=== PATIENT | female | born 1985 | race Caucasian/White ===

== ENCOUNTER 2016-08-26 08:15 | Observation (INO) ==
--- NOTE | 2016-08-26 09:49 | Emergency Department Note ---
Disposition Clinical Impression: Cholecystitis, acute with cholelithiasis Qualifiers: Cholelithiasis location: gallbladder Biliary obstruction: without biliary obstruction Qualified Code(s): K80.00 - Calculus of gallbladder with acute cholecystitis without obstruction Disposition: Admitted As Inpatient Condition: Fair Referrals: NO,PCP [Primary Care Provider] - Forms: Work/School Release, ED Satisfaction Letter Time of Disposition: 10:47 Abdominal Pain HPI - General Chief Complaint: ED Abdominal Pain Stated Complaint: From [facility] for Gallbladder US Time Seen by Provider: 08/26/16 08:29 Source: patient, family Nursing Notes Reviewed: Yes Vital Signs Reviewed: Yes - History of Present Illness HPI Narrative: Presents with abdominal pain which is generalized and sharp and constant and woke her from sleep at 2:00 in the morning and after her pain started she began to have some vomiting and has vomited 3 times. No diarrhea. She also feels a sensation of shortness of breath which occurs when her pain worsens. She has some sore feeling in the chest however there is no pleuritic chest pain. No pain or swelling of the lower extremities, prolonged immobilization, hormonal therapy/ control pills. She denies any dysuria or urinary frequency, blood in the urine or stool, vaginal bleeding or discharge. Social history: Smoker, several times a week she will drink 6 beers at a time, no drugs. Was seen at a outside emergency department and had a CAT scan that showed gallstones and pericholecystic fluid. She was sent here for a ultrasound. I did review the labs which show normal white count, left lites, renal function and liver function tests. She is here with her mother Pain Scale: 10 - Related Data Home Medications Medication Instructions Recorded Confirmed No Known Home Drugs 02/28/16 02/28/16 Allergies Allergy/AdvReac Type Severity Reaction Status Date / Time No Known Allergies Allergy Verified 08/26/16 08:40 Review of Systems: Constitutional: No fever Vision: No blurred vision ENT: No rhinorrhea Respiratory: No cough Allergic: No allergies : No blood in urine GI: No blood in stool Hematologic: No bruising Dermatologic: No skin rash Musculoskeletal: No pain in the extremities Neuro: No numbness of the extremities Abdominal Pain PMH - Past Medical History Medical history: Reports: no medical history Female Surgical History: Reports: no surgical history Psychiatric history: Reports: no psych history - Social History Smoking status: Current every day smoker Alcohol use: Reports: occasionally Drug use: Reports: none Physical Exam CONSTITUTIONAL: Alert and oriented X3, well-nourished, well appearing, in no apparent distress HEAD: Normocephalic; atraumatic. EYES: PERRL, no scleral icterus. NOSE: The nose is normal in appearance without rhinorrhea RESP: Normal chest excursion with respiration; breath sounds clear and equal bilaterally; no wheezes, rhonchi, or rales CARD: Regular rhythm, without murmurs, rub or gallop ABD: Non-distended; moderate generalized abdominal pain worse than the right upper quadrant where there is some voluntary guarding, else with abdomen is soft. Normal appearance without evidence of rash. No rebound SKIN: Normal for age and race; warm and dry; no apparent lesions Back: Normal appearance - General Limitations: no limitations General appearance: alert Course Vital Signs Temperature 98.4 F 08/26/16 08:25 Pulse Rate 45 08/26/16 08:25 Respiratory Rate 18 08/26/16 08:25 Blood Pressure 143/78 08/26/16 08:25 O2 Sat by Pulse Oximetry 100 08/26/16 08:25 Temperature 98.4 F 08/26/16 08:25 Pulse Rate 55 08/26/16 08:35 Respiratory Rate 20 08/26/16 08:35 Blood Pressure 125/94 08/26/16 08:35 O2 Sat by Pulse Oximetry 100 08/26/16 08:42 Oxygen Delivery Oxygen Delivery Room Air Abdominal Pain - MDM Narrative Medical decision making narrative: Ultrasound has been completed, we are waiting the radiology confirmation of the results. I do not suspect pulmonary embolism or acute coronary syndrome. Does have generalized abdominal pain. Likely from cholecystitis. [id number] I did review the ultrasound result consistent with cholecystitis. I did review the patient's labs from this morning. Surgery will be paged. I have seen the patient multiple occasions and she is not toxic in appearance at this time. Breathing comfortably. Vital signs have been reviewed. [address] Dickens who accepts the patient for admission. We did review the patient's radiology results and lab results. Patient will be given 2 g of Mefoxin 1043 - Medical Records Medical records reviewed: Yes I reviewed the patient's medical records. - Lab Data Lab results reviewed: Yes I reviewed the patient's lab results.
[2016-08-26] MEDS ORDERED: cefOXitin 2,000 MG in D5% in Water (Mini-Bag+) 100 ML IVPB ONE (10:44)
[2016-08-26] MEDS ORDERED: *HR* HYDROmorphone (PF) 1 MG/ML SYRINGE IVP ONE (11:53)
[2016-08-26] MEDS ORDERED: Naloxone 0.4 MG/ML INJ IVP PRN (14:33)
[2016-08-26] MEDS ORDERED: Ketorolac 15 MG/ML VIAL IVP PRN (14:36)
[2016-08-26] MEDS ORDERED: Ipratropium/Albuterol Neb 3 ML IH PRN (14:38)
--- NOTE | 2016-08-26 14:44 | General Surg History&Physical ---
Date of Encounter: 08/26/16 Time of Encounter: 14:20 Assessment and Plan (1) Cholecystitis, acute with cholelithiasis Current Visit: Yes Status: Acute The assessment and plan as outlined above was discussed with the patient and/or family members who expressed understanding and agreement. All questions were answered. Clear liquid diet Nothing by mouth after midnight IV fluids at 75 mL per hour IV antibiotics Zosyn Supportive care and pain control- Toradol and Dilaudid PPI therapy daily Increase activity as tolerated Risks, benefits, alternatives, expected outcomes been reviewed with the patient she is agreement to proceed to the operating room for laparoscopic cholecystectomy with cholangiogram with Dr. Dickens in the next 24 hours. Qualifiers: Cholelithiasis location: gallbladder Biliary obstruction: without biliary obstruction Qualified Code(s): K80.00 - Calculus of gallbladder with acute cholecystitis without obstruction (2) Tobacco abuse Current Visit: Yes Status: Acute The assessment and plan as outlined above was discussed with the patient and/or family members who expressed understanding and agreement. All questions were answered. Smoking cessation education Duonebs Q6 hours prn IS every 1 hour while awake (3) DVT prophylaxis Current Visit: Yes Status: Acute The assessment and plan as outlined above was discussed with the patient and/or family members who expressed understanding and agreement. All questions were answered. EPCDs to bilateral lower extremities generation manager to the OR 07/28/16 [address] hall[address] TID with assistance History of Present Illness Chief complaint: Abdominal pain with associated nausea/vomiting HPI: Ms. Dahl is a 31 year old female presented to the emergency department with complaints of acute onset of central abdominal discomfort. She states that this started at 3 AM this morning. She states that the pain is sharp and stabbing has been constant since onset. She states that it woke her up from sleep. It does radiate straight through into her back. She is unable to identify any aggravating or alleviating factors. She has had pain like this in the past a few years ago and then again last week. She states that the previous episodes that have resolved on their own. She does admit to nausea and vomiting but denies any hematemesis or coffee-ground emesis. Denies any heartburn symptoms. Denies any fevers or chills. Denies any changes in bowel habits. Denies any difficulty with urination. Denies any chest pain or shortness of breath. She has had an ultrasound completed in the emergency department which shows evidence of acute cholecystitis. The patient will be admitted to the hospital for further workup and treatment. Past Med Surg Social Fam HX - Past Medical History Source: patient, old records reviewed Medical history: no medical history Psychiatric history: no psych history - Past Surgical History Surgical History: cataract (right eye), other ( X 2) - Social History Smoking Status: Current every day smoker Packs per day: 1/2 pack/day Smokeless Tobacco Status: No Alcohol use: occasionally Drug use: none Current living situation: Home - Independent Activity Level: Independent ambulation Recent Out of Country Travel Within the Last 8 Weeks: No Exposure or Possible Exposure to Illness During Travel: No - Family History Mother Adopted: [place]: Elvira Dahl Age: 53 Living Status: Still Living Hx Family Cardiac Disorders: No Hx Family Respiratory Disorders: No Hx Family Cancer: No Hx Family GI Disorders: No Hx Family Genitourinary Disorders: No Hx Family Endocrine Disorder: No Hx Family Musculoskeletal Disorders: No Hx Family Neuromuscular Disorders: No Hx Family Neurologic Disorders: No Hx Family HEENT Disorders: No Hx Family Autoimmune Disorders: No Hx Family Reproductive Disorders: No Hx Family Psychosocial Disorders: No Hx Family Medical Disorders: No Medications and Allergies No Known Home Drugs 02/28/16 [History] Allergies No Known Allergies Allergy (Verified 08/26/16 08:40) Review of Systems All systems PM: reviewed and no additional remarkable complaints except as stated (in the HPI) All systems PM: A 10-system review of systems was performed and is negative for pertinent findings except as documented above in the HPI. General Surgery Exam Initial Vital Signs Temp Pulse Resp BP Pulse Ox 98.4 F 45 18 143/78 100 08/26/16 08:25 08/26/16 08:25 08/26/16 08:25 08/26/16 08:25 08/26/16 08:25 - General physical appearance well developed, well nourished, moderate distress, moderate pain - Eyes normal ocular movement - ENT normal mucosa, atraumatic, normocephalic - Neck trachea midline - Respiratory normal respiratory effort, clear to auscultation - Cardiovascular Cardiovascular exam: Present: RRR - Abdomen Abdomen general surgery: Present: bowel sounds present, soft, tender - Integumentary Integumentary general surgery: Present: warm and dry - Neurologic Present: CN 2-12 grossly intact - Psychiatric Psychiatric general surgery: Present: appropriate, oriented to person, oriented to place, oriented to time, speech is normal, memory intact Results - Labs All other labs normal. - Imaging US - abdomen: report reviewed Additional studies: Gallbladder Ultrasound 08/26/16 08:39 IMPRESSION: Cholelithiasis with mucosal thickening and pericholecystic fluid. No sonographic Yanez sign. Acute cholecystitis is suspected. Lack of tenderness could be due to potential medication. Please correlate clinically. D/ / Kelby Herrera MD / Kelby Herrera MD Interpreting Provider: Kelby Herrera MD Chest X-Ray 08/26/16 12:04 IMPRESSION: 1. There are bilateral nipple shadows along the lower chest. 2. No acute cardiopulmonary disease. D/ / Henrik Cho MD / Henrik Cho MD Interpreting Provider: Henrik Cho MD
[2016-08-26] MEDS: 0.9 % Sodium Chloride 1,000 ML IVC SCH (14:57)
[2016-08-26] MEDS: *HR* HYDROmorphone (PF) 1 MG/ML SYRINGE IVP PRN ×5 (14:58→23:54)
[2016-08-26] MEDS: Nicotine 14 MG PATCH.TD24 TD SCH (15:03)
[2016-08-26] MEDS: Piperacillin/Tazobactam 3.375 GM in D5% in Water (Mini-Bag+) 100 ML IVPB SCH ×2 (17:15→23:54)
[2016-08-26] MEDS: Ondansetron 4 MG/2 ML VIAL IVP PRN ×2 (17:47→23:54)
--- NOTE | 2016-08-26 18:55 | Anesthesia Evaluation PreOp ---
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 Significant HX Other Medical History: Denies Any Significant HX Anesthesia History: No Prior Anesthetic Complications : No Test: Negative Alcohol Use: occasionally Drug use: none Medications and Allergies No Known Home Drugs 02/28/16 [History] Allergies No Known Allergies Allergy (Verified 08/26/16 08:40) - Meds/Allergy Pre-op Review Medications Reviewed: Yes Allergies Reviewed: Yes Beta Blockers on Current Med List: No Anesthesia Results - Labs Laboratory Tests 08/26/16 08/26/16 08/26/16 05:00 05:00 06:07 Hgb 13.1 Hct 37.3 Plt Count 211 Sodium 139 Potassium 3.5 BUN 14 Creatinine 0.65 Urine Test Negative Anesthesia Exam O2 Sat Height 1.57 m Height 1.57 m Weight 54.613 kg Weight 56.699 kg O2 Sat by Pulse Oximetry 97 O2 Sat by Pulse Oximetry 100 O2 Sat by Pulse Oximetry 100 O2 Sat by Pulse Oximetry 100 O2 Sat by Pulse Oximetry 100 O2 Sat by Pulse Oximetry 100 Vital Signs Temp Pulse Resp BP Pulse Ox 98.4 F 45 18 143/78 100 08/26/16 08:25 08/26/16 08:25 08/26/16 08:25 08/26/16 08:25 08/26/16 08:25 Height: 5'2 Weight: 120 lbs NPO (# of Hours): MN Pain Scale: 0 - HEENT Pupil (Motor): Pupils equal, EOMI Mallampati: II Teeth: Normal Oral Opening: Greater than 3 - HOT METAL MIXER OPERATOR LOC: Oriented HOT METAL MIXER OPERATOR Motor: Normal RUE, Normal LUE, Normal RLE, Normal LLE, Normal Face HOT METAL MIXER OPERATOR Sensory: Normal: RUE, LUE, RLE, LLE, Face - Cardiac Rhythm: Regular Murmur: None JVD: No Carotid Bruit: No - Pulmonary Breath Sounds: bilateral Clear Respiratory Effort: Symmetrical Anesthesia Assess/Plan ASA Score: 2 Modified Kayden Scale for Level of Consciousness: Cooperative, oriented, and tranquil Anesthetic Plan: General Monitoring Plan: Standard Monitors Recovery Plan: PACU (Discussed GA, agrees to proceed)
[2016-08-27] MEDS: *HR* HYDROmorphone (PF) 1 MG/ML SYRINGE IVP PRN ×5 (03:48→12:09)
[2016-08-27] MEDS: 0.9 % Sodium Chloride 1,000 ML IVC SCH (03:48)
[2016-08-27] MEDS: Piperacillin/Tazobactam 3.375 GM in D5% in Water (Mini-Bag+) 100 ML IVPB SCH (08:10)
[2016-08-27] MEDS: Nicotine 14 MG PATCH.TD24 TD SCH (08:15)
[2016-08-27] MEDS ORDERED: Acetaminophen IV 1,000 MG/100 ML INFUS..BTL ONE (10:42)
[2016-08-27] MEDS ORDERED: Lidocaine -MPF 2% 2 ML VIAL ONE ×2 (11:01)
[2016-08-27] MEDS ORDERED: Dexamethasone 4 MG/ML VIAL ONE (11:01)
[2016-08-27] MEDS ORDERED: *HR* FentaNYL (PF) 100 MCG/2 ML VIAL ONE ×3 (11:01→11:24)
[2016-08-27] MEDS ORDERED: *HR* Propofol 200 MG/20 ML VIAL IVP ONE (11:01)
[2016-08-27] MEDS ORDERED: Ondansetron 4 MG/2 ML VIAL ONE (11:01)
[2016-08-27] MEDS ORDERED: *HR* Rocuronium Bromide 50 MG/5 ML VIAL ONE (11:01)
[2016-08-27] MEDS ORDERED: *HR* Midazolam HCl 2 MG/2 ML VIAL ONE (11:01)
[2016-08-27] MEDS ORDERED: Lidocaine -MPF 4% 5 ML AMPUL ONE (11:01)
[2016-08-27] MEDS ORDERED: Ketorolac 30 MG/ML VIAL ONE (11:13)
[2016-08-27] MEDS ORDERED: Neostigmine Methylsulfate 3 MG/3 ML SYRINGE ONE (11:13)
[2016-08-27] MEDS ORDERED: *HR* Labetalol 20 MG/4 ML SYRINGE IVP PRN ×2 (11:14→13:08)
[2016-08-27] MEDS ORDERED: Ondansetron 4 MG/2 ML VIAL IVP ONE ×2 (11:14→13:08)
[2016-08-27] MEDS ORDERED: *HR* Promethazine 25 MG/ML VIAL IVP PRN ×2 (11:14→13:08)
--- NOTE | 2016-08-27 11:34 | Operative Note ---
Date of procedure: 08/27/16 Pre-op diagnosis: Acute cholecystitis Post-op diagnosis: same Procedure: Laparoscopic Cholecystectomy with cholangiogram Anesthesia: JEFF Surgeon: Amador Dickens Estimated blood loss (cc): 25 Specimen: GB Condition: stable Disposition: same day Procedure in Detail: After informed consent the patient was taken to the operating room. After adequate sedation anesthesia the abdomen was prepped and draped. A proper timeout was performed. Two towel clamps to place the umbilicus. A varies needle was placed at the umbilicus and a pneumo-peritoneum was created. A 12 mm incision was made at the umbilicus and a port was placed under direct visualization. An 5 mm incision was created in the left upper quadrant, followed by one in the right upper quadrant. There were 2 individual 5 mm cannulas then placed agrees incisions. An additional 5 mm cannula was created in the right lower quadrant. Cameras inserted and the gallbladder was identified. There was extensive edematous changes to the dome of the gallbladder. Once it was retracted anteriorly and cephalad the infundibulum and cystic duct was skeletonized. A window was created behind the cystic duct. Clips are placed distally on the duct and a duct artery was created. A cholangiogram was performed. There was filling of the cystic duct common hepatic and radicals followed by the common bile duct and finally the duodenum. No stones could be identified. Once the structures were identified the cystic duct was clipped twice proximally and once distally. Cystic duct was then transected. The gallbladder was then resected off the liver surface. Once the gallbladder was fully resected from the liver surface, the liver was gently irrigated and suctioned dry. We ensured hemostasis prior to removing the gallbladder through the umbilical port. Pneumoperitoneum was then evacuated. The 12 mm cannula site was closed with a 0-Vicryl suture in [id number] fashion. The port sites were injected with half percent Marcaine 30 mL. The skin was closed with 4-0 Vicryl suture and Dermabond. All instrument counts and needle counts were correct at the end of the case. The pt was taken to recovery in stable condition.
--- NOTE | 2016-08-27 12:28 | Anesthesia Evaluation Post Op ---
Date of Encounter: 08/27/16 Time of Encounter: 12:27 - Vital Signs Vital Signs: Vital Signs/O2 Sat, Most Current Temp Pulse Resp BP Pulse Ox 97.9 F 59 14 121/78 99 08/27/16 12:26 08/27/16 12:17 08/27/16 12:17 08/27/16 12:08/27/16 12:17 - Lungs Lungs: Clear Ascult./Percussion - Airway Airway: Non-obstructed - Cardiovascular Regular Rate - Mental Status Mental Status: Alert & Oriented, Answers Appropriately - Pain Pain Scale: 0 Pain Scale used: Numeric (1 - 10) - Nausea Vomiting Nausea Vomiting: Not Present - Hydration Hydration: Ice chips, Has not voided - Discharge PostOp Status: Transfer Patient to floor
[2016-08-27] MEDS ORDERED: Ondansetron 4 MG/2 ML VIAL IVP PRN (13:08)
[2016-08-27] MEDS ORDERED: Ketorolac 15 MG/ML VIAL IVP PRN (13:08)
[2016-08-27] MEDS ORDERED: 0.9 % Sodium Chloride 1,000 ML IVC SCH (13:08)
[2016-08-27] MEDS ORDERED: *HR* HYDROmorphone (PF) 1 MG/ML SYRINGE IVP PRN ×2 (13:08)
[2016-08-27] MEDS ORDERED: Ipratropium/Albuterol Neb 3 ML IH PRN (13:08)
[2016-08-27] MEDS ORDERED: Naloxone 0.4 MG/ML INJ IVP PRN (13:08)
--- NOTE | 2016-08-27 14:12 | Discharge Summary ---
Date of Encounter: 08/27/16 Time of Encounter: 14:00 - Discharge Diagnosis (1) Cholecystitis, acute with cholelithiasis Priority: Primary Status: Acute Qualifiers: Cholelithiasis location: gallbladder Biliary obstruction: without biliary obstruction Qualified Code(s): K80.00 - Calculus of gallbladder with acute cholecystitis without obstruction (2) Tobacco abuse Priority: Secondary Status: Acute - Discharge Medications Prescriptions: OxyCODONE/APAP 5/325 [Percocet 5/325 MG] 1 each PO Q6HR PRN #30 tablet PRN Reason: Pain Docusate [Colace] 100 mg PO BID #30 Home Medications: No Known Home Drugs 02/28/16 [History] Docusate [Colace] 100 mg PO BID #30 08/27/16 [Rx] OxyCODONE/APAP 5/325 [Percocet 5/325 MG] 1 each PO Q6HR PRN #30 tablet 08/27/16 [Rx] Allergies/Adverse Reactions: Allergies No Known Allergies Allergy (Verified 08/26/16 08:40) General Surgery Exam Initial Vital Signs Temp Pulse Resp BP Pulse Ox 98.4 F 45 18 143/78 100 08/26/16 08:25 08/26/16 08:25 08/26/16 08:25 08/26/16 08:25 08/26/16 08:25 Date of admission: 08/26/16 10:59 Primary care physician: PCP NO Discharging clinician: Amador Avina) Anticipated date of discharge: 08/27/16 - Patient Status Disposition: Home, Self-Care Condition: Good Functional capacity at discharge: independent ambulation Overall status at discharge: patient is progressing back to baseline - Discharge Instructions Follow Up With: JUSTEN,PCP [Primary Care Provider] - Jacey Avina TEST FACILITY ENGINEER [Advanced Practice Nurse] - 09/09/16 9:30 am (surgery follow-up) Additional Instructions: #1 may shower, no tub bath or swimming for 2 weeks #2 wash incisions with soap and water and pat dry daily #3 no lifting, pushing, pulling more than 15 pounds for the next 2 weeks #4 no driving until off narcotics for 24 hours and able to safely react in the car #5 may climb stairs - Diet and Activity Activity: other (See additional instructions above) Diet: advance to your usual diet - Hospital Course Hospital course: Ms. Dahl is a 31 year old female presented to the hospital with abdominal pain with associated nausea and vomiting. She was found to have cholelithiasis and acute cholecystitis. She was started on supportive measures including IV fluids and IV antibiotics. She was taken to the operating room for laparoscopic cholecystectomy with cholangiogram with Dr. Dickens. We will begin discharge planning to home when the patient meets discharge criteria including: Vital signs are stable and afebrile, pain is well controlled, ambulating and voiding without difficulty, tolerating liquids without nausea or vomiting. - Time Spent with Patient Total time spent providing and/or coordinating discharge services: Less than 30 minutes Labs on day of discharge: Labs from last 24 hours 08/27/16 05:11 POC Glucose 89 - Impressions ITS Impressions Chest X-Ray 08/26/16 12:04 IMPRESSION: 1. There are bilateral nipple shadows along the lower chest. 2. No acute cardiopulmonary disease. D/ / Henrik Cho MD / Henrik Cho MD Interpreting Provider: Henrik Cho MD Cholangiogram,Operative 08/27/16 00:00 IMPRESSION: Negative intraoperative cholangiogram. D/ / Ethan Abebe MD / Ethan Abebe MD Interpreting Provider: Ethan Abebe MD
[2016-08-27] MEDS ORDERED: Piperacillin/Tazobactam 3.375 GM in D5% in Water (Mini-Bag+) 100 ML IVPB SCH (16:00)
[2016-08-27 16:06] VITALS: BP 100/52
[2016-08-28] MEDS ORDERED: Nicotine 14 MG PATCH.TD24 TD SCH (09:00)
== END 2016-08-27 17:48 | disposition home or self-care (01) ==
LOC: 3ANU 08:15 → EMEROO 08:15 → 3ANU 11:12
PROVIDERS: ADMIT Internal Medicine; ATTEND Internal Medicine